=== PATIENT | female | born 1980 ===

== ENCOUNTER 2018-01-29 09:53 | Outpatient (REF) | payer SELFPAY | END 2018-01-29 09:54 | LOC: OM 09:53 | PROVIDERS: Visit Provider Nurse Practitioner Family | DX: Z02.83 Encounter for blood-alcohol and blood-drug test (principal) ==

== ENCOUNTER 2018-01-29 09:54 | Outpatient (REF) | payer SELFPAY | END 2018-01-29 09:55 | LOC: OM 09:54 | PROVIDERS: Visit Provider Nurse Practitioner Family | DX: Z02.1 Encounter for pre-employment examination (principal) ==